=== PATIENT | female | born 1955 ===

== ENCOUNTER 2017-04-21 07:06 | Day surgery (SDC) | payer MEDICAID ==
[2016-04-09 08:58] VITALS: BMI 34.0
[2017-04-21] MEDS ORDERED: Lactated Ringer's 500 ML IV ONE (07:41)
[2017-04-21] MEDS ORDERED: Phenylephrine 10 mg/ml Inj ONE (07:58)
[2017-04-21] MEDS ORDERED: Propofol 10 mg/ml Inj (20 ML) ONE (08:45)
[2017-04-21 09:02] VITALS: TEMP 97.5; O2SAT 100
[2017-04-21 09:16] VITALS: BP 134/86; PULSE 52; RESP 16
== END 2017-04-21 09:32 | disposition home or self-care (01) ==
LOC: H.ENDO 07:06
PROVIDERS: ATTEND Internal Medicine Gastroenterology
DX: C16.9 Malignant neoplasm of stomach, unspecified (principal); K29.50 Unspecified chronic gastritis without bleeding; K30 Functional dyspepsia

== ENCOUNTER 2017-05-20 10:57 | Day surgery (SDC) | payer MEDICAID ==
[2017-05-20 11:29] VITALS: BMI 31.7
[2017-05-20] MEDS ORDERED: Lactated Ringer's 1,000 ML IV ONE ×2 (11:54→15:17)
[2017-05-20 12:29] LABS: INR 1.1 (0.9-1.2); PARTIAL THROMBOPLASTIN TIME 29.9 Seconds (25.6-37.1); PROTHROMBIN TIME 11.7 Seconds (9.8-13.1)
[2017-05-20] MEDS ORDERED: Lidocaine 2% w Epi 1:100,000 Inj IJ ONE (13:54)
[2017-05-20] MEDS ORDERED: Lidocaine 1% Inj (20ml) ONE (13:54)
[2017-05-20] MEDS ORDERED: ceFAZolin 1 GM in Sodium Chloride 0.9% 100 ML IVPB ONE (14:01)
[2017-05-20 14:23] VITALS: O2SAT 99
[2017-05-20] MEDS ORDERED: Midazolam 2 MG/2 ML VIAL ONE (14:30)
--- NOTE | 2017-05-20 15:14 | CP.SDSHP ---
Same Day Surgery H & P - History Proposed Procedure: Port placement Pre-Op Diagnosis: Gastric cancer - Allergies Allergies: Allergies No Known Allergies Allergy (Verified 05/20/17 11:30) - Physical Exam Vital Signs: Vital Signs 05/20/17 05/20/17 05/20/17 11:45 12:09 14:22 Temperature 98.1 F 97.9 F Pulse Rate 60 60 80 Respiratory 18 18 Rate Blood Pressure 145/81 161/84 H O2 Sat by Pulse 96 99 Oximetry Mental Status: Alert & Oriented x3 Neuro: WNL Heart: WNL Lungs: WNL - Impression Impression: Pt with gastric cancer referred for port placement. Informed consent obtained. Pt. Evaluated Today:Candidate for Anesthesia & Procedure: Yes (ASA 2 Malampati 3) - Date & Time Date: 05/20/17 Time: 15:10 Short Stay Discharge - Short Stay Discharge Admitting Diagnosis/Reason for Visit: GASTRIC CA Referrals: Jean Paul Fontenot MD [Primary Care Provider] -
--- NOTE | 2017-05-20 15:15 | PCM.SURG1 ---
Surgeon's Initial Post Op Note - Surgeon's Notes Surgeon: Akbar Ponce MD Fence Erector Supervisor: None Type of Anesthesia: IV Sedation Pre-Operative Diagnosis: Gastric cancer Operative Findings: Patent right IJV Post-Operative Diagnosis: Gastric cancer Operation Performed: Right IJV port placement Specimen/Specimens Removed: None Estimated Blood Loss: EBL {In ML}: 4 Blood Products Given: N/A Drains Used: No Drains Post-Op Condition: Good Date of Surgery/Procedure: 05/20/17 Time of Surgery/Procedure: 15:10
[2017-05-20 17:26] VITALS: RESP 18; TEMP 98.3
[2017-05-20 18:31] VITALS: BP 130/69; PULSE 60
--- NOTE | 2017-05-23 13:20 | VASCULAR ---
PROCEDURE: Date of procedure: 05/20/2017 Procedure: 1. Placement of a right IJ port catheter with ultrasound and fluoroscopic guidance, CPT 05635 2. Catheter tip confirmation with spot radiograph in the superior vena cava. Medications: The patient was sedated anesthesiologist along with monitoring, Ancef 1 gm, Lidocaine 1% w Epinephrine HISTORY: Gastric cancer requiring port for chemotherapy TECHNIQUE: Following informed consent the procedure time-out, patient was placed supine on the interventional table and the right neck and chest were prepped and draped in the usual sterile fashion. Ultrasound showed a compressible right internal jugular vein. After the patient was sedated by the anesthesiologist, the skin anesthetized with 1% lidocaine with epinephrine. Under direct ultrasound guidance, the right internal jugular vein was accessed with micropuncture technique. A guidewire was then advanced under fluoroscopic guidance into the superior vena cava. An image documenting ultrasound guidance for vascular access was permanently saved. The subcutaneous tissue of patient right chest was infiltrated with 1 percent lidocaine with epinephrine. A dermatotomy was made with a 15. Scalpel. The port pocket was then created with blunt dissection using a Susie clamp. The port pocket was flushed. A port catheter was then tunneled under the skin and out the venotomy site. The port catheter was flushed, advanced through a peel-away sheath, adjusted for length, and attached to the port. The port was placed in the port pocket and was secured with 2-0 SurgiPro sutures. The port was flushed and locked with heparin. The port pocket was then closed with absorbable 4-0 Polysorb sutures. The port pocket and the venotomy site were reprepped with ChloraPrep. Steri-Strips were then applied to the port incision also venotomy site. A sterile dressing was then applied. Final spot radiograph showed the right IJ port catheter with tip of the port catheter in the superior vena cava. A port is functional and ready for use. IMPRESSION: Placement of right IJ port catheter. The tip of the port is in the superior vena cava.
== END 2017-05-20 18:45 | disposition home or self-care (01) ==
LOC: H.OPSURG 10:57
PROVIDERS: ATTEND Internal Medicine Hematology & Oncology
DX: C16.9 Malignant neoplasm of stomach, unspecified (principal); E11.9 Type 2 diabetes mellitus without complications; I10 Essential (primary) hypertension; E78.5 Hyperlipidemia, unspecified; E03.9 Hypothyroidism, unspecified; R06.83 Snoring